=== PATIENT | male | born 1950 | race Caucasian/White ===

== ENCOUNTER 2018-10-16 17:48 | Inpatient (IN) | payer MEDICARE, MEDICAID ==
[2018-10-16] MEDS ORDERED: LORazepam 2 MG/ML SDV ONE ×3 (17:52→21:28)
[2018-10-16] MEDS ORDERED: LORazepam 2 MG/ML SDV IVPUSH ONE ×4 (17:56→23:02)
--- NOTE | 2018-10-16 18:09 | EDM.PDOC ---
ED HPI GENERAL MEDICAL PROBLEM - General Stated Complaint: SEIZURES Time Seen by Provider: 10/16/18 17:51 Source of Information: Reports: Other (2 caregivers from) History Limitations: Reports: Physical Impairment (currently seizing) - History of Present Illness INITIAL COMMENTS - FREE TEXT/NARRATIVE: According to 2 [place] counselors from [facility] - a camp for disabled persons, the patient started having seizures around 16:45. He has had variable degrees of wakefulness in between the seizures, however, at present, the patient appears to be having a generalized tonic-clonic seizure. He has not bitten his tongue or lip, and he has not lost continence of bowel or bladder. The patient has a history of complex partial seizures, and is on both Keppra and Lamictal, along with Klonopin, given for anxiety. According to the counselors, the patient has not missed any doses of his medications, nor has he been sleep deprived. No recent illnesses, to their knowledge, however, the patient just came to [place] yesterday. I spoke with the patient's family caseworker, Aviva Delaney, on the phone at 18:02, who informed me that the patient ordinarily has about 10 relatively brief seizures every 6 months. Most seizures last about 2 minutes, however, every year , when the patient goes to [place], he gets very excited, and when he is excited, his seizures last longer. She stated that the patient has been extremely excited about this current camp trip, for quite some time, therefore it does not surprise her that he is having such prolonged seizures. She does not recall when the last imaging study of his head was performed. She does not recall if one particular antiepileptic treatment - Ativan versus diazepam, etc - is preferable. Ms. Delaney and I reviewed the patient's past medical history. She believes that he has not undergone any surgeries. The patient's PCP is Dr. Bill. The patient's Neurologist is in [place], but Ms. Delaney did not recall his name. The patient's Psychiatrist is Dr. Griffith. - Related Data Allergies Allergy/AdvReac Type Severity Reaction Status Date / Time No Known Allergies Allergy Verified 10/16/18 18:08 Past Medical History Neurological History: Reports: Seizure (complex partial), Other (See Below) ( Moderate intellectual disability) Psychiatric History: Reports: Anxiety, Psychosis Social & Family History - Tobacco Use Smoking Status *Q: Never Smoker Second Hand Smoke Exposure: No - Alcohol Use Alcohol Use History: No - Recreational Drug Use Recreational Drug Use: No - Living Situation & Occupation Living situation: Reports: Single, Other ([facility] in [place], [place]) Occupation: Disabled ED ROS GENERAL - Review of Systems Review Of Systems: ROS reveals no pertinent complaints other than HPI. - Physical Exam Exam: See Below Exam Limited By: Physical Impairment (Seizures) General Appearance: WD/WN Ears: Normal External Exam Nose: Normal Inspection Throat/Mouth: Normal Inspection, Normal Lips, No Airway Compromise Head Exam: Atraumatic, Normocephalic Neck: Normal Inspection Respiratory/Chest: No Respiratory Distress, Lungs Clear, Normal Breath Sounds, No Accessory Muscle Use Cardiovascular: Normal Peripheral Pulses, Regular Rate, Rhythm, No Edema, No Gallop, No JVD, No Murmur, No Rub GI/Abdominal: Normal Bowel Sounds, Soft, No Organomegaly, No Distention, No Abnormal Bruit, No Mass (Male) Exam: Deferred Rectal (Males) Exam: Deferred Neuro Exam (Abbreviated): Other (Actively seizing) Back Exam: Normal Inspection, Full Range of Motion, NT Extremities: Normal Inspection, Normal Capillary Refill Skin Exam: Warm, Dry, Intact, Normal Color, No Rash Course - Vital Signs Last Recorded V/S: Last Vital Signs Temp 35.9 C 10/16/18 18:02 Pulse 71 10/16/18 18:02 Resp 24 H 10/16/18 18:02 BP 139/76 10/16/18 18:02 Pulse Ox 94 L 10/16/18 18:02 - Orders/Labs/Meds Labs: Laboratory Tests 10/16/18 10/16/18 Range/Units 18:24 18:24 WBC 6.73 (4.23-9.07) K/mm3 RBC 4.61 L (4.63-6.08) M/mm3 Hgb 14.1 (13.7-17.5) gm/L Hct 41.5 (40.1-51.0) % MCV 90.0 (79.0-92.2) fl MCH 30.6 (25.7-32.2) pg MCHC 34.0 (32.2-35.5) g/dl RDW Std Deviation 41.0 (35.1-43.9) fL Plt Count 267 (163-337) K/mm3 MPV 9.9 (9.4-12.3) fl Neutrophils % (Manual) 67 H (40-60) % Band Neutrophils % 0 (0-10) % Lymphocytes % (Manual) 29 (20-40) % Atypical Lymphs % 0 % Monocytes % (Manual) 1 L (2-10) % Eosinophils % (Manual) 2 (0.8-7.0) % Basophils % (Manual) 1 (0.2-1.2) Platelet Estimate Adequate Plt Morphology Comment Normal RBC Morph Comment Normal Sodium 138 (136-145) mEq/L Potassium 3.8 (3.5-5.1) mEq/L Chloride 102 (98-107) mEq/L Carbon Dioxide 25 (21-32) mEq/L Anion Gap 14.8 (5-15) BUN 15 (7-18) mg/dL Creatinine 1.2 (0.7-1.3) mg/dL Est Cr Clr Drug Dosing 58.58 mL/min Estimated GFR (MDRD) > 60 (>60) mL/min BUN/Creatinine Ratio 12.5 L (14-18) Glucose 107 (80-115) mg/dL Calcium 10.0 (8.5-10.1) mg/dL Phosphorus 4.1 (2.6-4.7) mg/dL Magnesium 2.0 (1.8-2.4) mg/dl Total Bilirubin 0.5 (0.2-1.0) mg/dL AST 18 (15-37) U/L ALT 25 (16-63) U/L Alkaline Phosphatase 94 (46-116) U/L Total Protein 8.0 (6.4-8.2) g/dl Albumin 4.2 (3.4-5.0) g/dl Globulin 3.8 gm/dL Albumin/Globulin Ratio 1.1 (1-2) Ethyl Alcohol 0.00 (0.00) gm% Meds: Medications Discontinued Medications Generic Name Dose Route Start Last Admin Trade Name Freq PRN Reason Stop Dose Admin Diazepam 15 mg 10/16/18 18:24 10/16/18 18:29 Valium IV 10/16/18 18:25 15 mg ONETIME STA Administration Diazepam Confirm 10/16/18 18:26 10/16/18 19:09 Valium Administered 10/16/18 18:27 Not Given Dose 10 mg .ROUTE .STK-MED ONE Diazepam Confirm 10/16/18 18:26 10/16/18 19:09 Valium Administered 10/16/18 18:27 Not Given Dose 10 mg .ROUTE .STK-MED ONE Lorazepam Confirm 10/16/18 17:52 10/16/18 18:16 Ativan Administered 10/16/18 17:53 Not Given Dose 2 mg .ROUTE .STK-MED ONE Lorazepam Confirm 10/16/18 18:09 10/16/18 18:15 Ativan Administered 10/16/18 18:10 Not Given Dose 2 mg .ROUTE .STK-MED ONE Lorazepam 1 mg 10/16/18 18:11 10/16/18 18:13 Ativan IVPUSH 10/16/18 18:12 1 mg ONETIME STA Administration Lorazepam 1 mg 10/16/18 17:56 10/16/18 17:56 Ativan IVPUSH 10/16/18 17:57 1 mg ONETIME ONE Administration Lorazepam 1 mg 10/16/18 18:04 10/16/18 18:04 Ativan IVPUSH 10/16/18 18:05 1 mg ONETIME ONE Administration - Re-Assessments/Exams Free Text/Narrative Re-Assessment/Exam: 10/16/18 17:59 The patient may be in status epilepticus, because while it is known that he has a seizure disorder, the frequency of his seizures is not known. An IV is being established, and the patient will receive IV lorazepam. I have ordered blood work, a urine drug screen, and, since the patient has never been here before, a CT scan of his head without contrast. Unfortunately, both Keppra and Lamictal levels are send-out tests. 10/16/18 18:24 So far, the patient has received a total of 3 mg of IV lorazepam. Initially, when I first saw him, he was having more of a generalized tonic-clonic seizure. The generalized tonic-clonic activity has ceased, however, the patient is still unresponsive, with both his eyes deviated to the left, with frequent eyebrow raising. His body is relatively flaccid. I ordered diazepam 15 mg IVP. I cannot leave the patient in status epilepticus. If I can't get control of his seizures with benzodiazepines, I may need to consider intubation and propofol. 10/16/18 18:34 Following IV diazepam, the patient now appears to be sleeping. His eyes are no longer deviated to the left. Katya BUCKNER informed me that he was earlier incontinent of urine. His oxygen saturation briefly dropped - Katya BUCKNER and I repositioned him, so that he is sitting more upright, and his oxygen saturation is now in the low 90s on room air. I am reluctant to give him supplemental oxygen, for this will mask hypoventilation. If the patient develops respiratory depression to the point that he cannot adequately oxygenate, that would mean that he is also not adequately ventilating, and intubation would need to be considered. 10/16/18 19:14 CT of the head without contrast is read by Dr. Mcneil as: 1. Asymmetric cerebellar atrophy. This can be seen with certain types of medication. 2. Sinus findings which most likely are due to chronic sinusitis. No fluid is seen within the sinuses to indicate acute sinusitis. 3. No acute intracranial abnormality is appreciated on noncontrast head CT exam. 10/16/18 19:36 The patient has been sleeping, but is able to be woken. I don't feel, however, that the patient is fit for return to [place]. I would prefer that he stay the night. Unfortunately, the camp counselors inform me that even if medically cleared, they do not want him back at [place]. Case discussed with Dr. Mcelroy at 19:30. He accepted the patient for placement into observation on the medical floor. Departure - Departure Time of Disposition: 19:38 Disposition: Refer to Observation Condition: Good Clinical Impression: Epileptic seizures - Discharge Information *PRESCRIPTION DRUG MONITORING PROGRAM REVIEWED*: Not Applicable *COPY OF PRESCRIPTION DRUG MONITORING REPORT IN PATIENT JUSTINA: Not Applicable Referrals: PCP,None [Primary Care Provider] -
[2018-10-16] MEDS ORDERED: LORazepam 2 MG/ML SDV IVPUSH STA (18:11)
[2018-10-16] MEDS ORDERED: diazePAM 5 MG/ML MDV IV STA (18:24)
[2018-10-16] MEDS ORDERED: diazePAM 5 MG/ML-2ml Syringe ONE ×2 (18:26)
--- NOTE | 2018-10-16 19:12 | CT ---
Head CT Technique: Multiple axial sections through the brain were obtained. Intravenous contrast was not utilized. Comparison: No prior intracranial imaging is present. Findings: Asymmetric atrophy is seen of the cerebellum as compared to other portions of the brain. No abnormal parenchymal densities are seen. No evidence of intracranial hemorrhage. No midline shift or mass effect is seen. Mild mucosal thickening is seen within the ethmoid and frontal sinuses. No air-fluid levels are appreciated within the paranasal sinuses. Mastoid sinuses are clear. No acute calvarial abnormality is appreciated. Impression: 1. Asymmetric cerebellar atrophy. This can be seen with certain types of medication. 2. Sinus findings which most likely are due to chronic sinusitis. No fluid is seen within the sinuses to indicate acute sinusitis. 3. No acute intracranial abnormality is appreciated on noncontrast head CT exam. Diagnostic code #2
[2018-10-16] MEDS ORDERED: diazePAM 5 MG/ML-2ml Syringe IV ONE (19:54)
[2018-10-16] MEDS ORDERED: Simvastatin 20 MG Tab PO ONE (21:45)
[2018-10-16] MEDS ORDERED: levETIRAcetam 500 MG in Sodium Chloride 0.9% 100 ML IV ONE (21:51)
--- NOTE | 2018-10-16 22:31 | PCM.HP ---
H&P History of Present Illness - General Date of Service: 10/16/18 Admit Problem/Dx: Admission Diagnosis/Problem Admission Diagnosis/Problem Seizure - History of Present Illness Initial Comments - Free Text/Narative: This 68-year-old disabled, mentally handicapped patient with known seizure disorder was brought to the emergency room from [facility] after developing a seizure around 1645. Patient is known to have an increase in seizure activity when he gets excited, but after several years of coming to [place] has never had a seizure there. Patient presented in the emergency room having a generalized tonic-clonic seizure. Patient is on Keppra, Lamictal, and Klonopin. He has not missed any doses. In the emergency room he continued to have seizures after 3 mg of Ativan, so he was given diazepam 15 mg. This did break his seizure and at that time patient was transferred to the floor. When patient arrives on the floor he continued to have fine tonic-clonic movement with head deviation to the left and left-sided eye deviation with horizontal nystagmus. Patient was given Ativan 2 mg IV which did break his current seizure. Unfortunately, patient has been in and out of seizures subsequently. Call was made to [facility] and Dr. Navjot Adame recommended loading him with Keppra 500 mg IV. After the loading dose of Keppra patient did have 1 more four- minute seizure, but currently is seizure free. patient was transferred from the [facility] floor to the ICU for closer monitoring. - Related Data Allergies/Adverse Reactions: Allergies Allergy/AdvReac Type Severity Reaction Status Date / Time No Known Allergies Allergy Verified 10/16/18 21:06 Home Medications: Home Meds Calcium Carbonate [Calcium] 500 mg PO TID 10/16/18 [History] ClonazePAM [KlonoPIN] 0.25 mg PO BEDTIME 10/16/18 [History] ClonazePAM [KlonoPIN] 0.5 mg PO DAILY 10/16/18 [History] Docusate Sodium [Colace] 100 mg PO BID 10/16/18 [History] Escitalopram [Lexapro] 10 mg PO BEDTIME 10/16/18 [History] Methylcellulose (with Sugar) [Citrucel] 1 tbsp PO DAILY 10/16/18 [History] Mirtazapine [Remeron] 30 mg PO BEDTIME 10/16/18 [History] Oxybutynin [Oxybutynin ER] 5 mg PO BEDTIME 10/16/18 [History] Ziprasidone HCl [Geodon] 60 mg PO BID 10/16/18 [History] atorvaSTATin Calcium [Lipitor] 20 mg PO BEDTIME 10/16/18 [History] lamoTRIgine [Lamictal] 300 mg PO DAILY 10/16/18 [History] lamoTRIgine [Lamictal] 400 mg PO BEDTIME 10/16/18 [History] levETIRAcetam [Keppra] 1,500 mg PO BID 10/16/18 [History] Past Medical History HEENT History: Reports: Impaired Vision Gastrointestinal History: Reports: Chronic Constipation Neurological History: Reports: Seizure, Other (See Below) Psychiatric History: Reports: Anxiety, Psychosis Other Psychiatric History: intellictual disorder- moderate Social & Family History - Family History Family Medical History: Unobtainable - Tobacco Use Smoking Status *Q: Current Status Unknown Second Hand Smoke Exposure: No - Caffeine Use Caffeine Use: Reports: None - Recreational Drug Use Recreational Drug Use: No - Living Situation & Occupation Living situation: Reports: Single, Other ([employer] [facility] in [place], [place]) Occupation: Disabled H&P Review of Systems - Review of Systems: Review Of Systems: Unable To Obtain Exam - Exam Exam: See Below - Vital Signs Vital Signs: Last Vital Signs Temp 96.7 F 10/16/18 18:02 Pulse 71 10/16/18 18:02 Resp 24 H 10/16/18 18:02 BP 139/76 10/16/18 18:02 Pulse Ox 94 L 10/16/18 18:02 Weight: 190 lb 14.4 oz - Exam General: Sedated, Other (between seizures does use one-word answers.) HEENT: Conjunctiva Clear, Mucosa Moist & [place], Posterior Pharynx Clear Neck: Supple, Trachea Midline Lungs: Clear to Auscultation, Normal Respiratory Effort Cardiovascular: Regular Rate, Regular Rhythm GI/Abdominal Exam: Normal Bowel Sounds, Soft, Non-Tender, No Distention Extremities: Normal Inspection, No Pedal Edema Neuro Extensive - Motor, Sensory, Reflexes: Other (fine, tonic-clonic seizure activity generalize. Eye and head deviation to the left with horizontal nystagmus. between seizures does follow directions with squeezing hands right greater than left.) - Patient Data Lab Results Last 24 hrs: Laboratory Results - last 24 hr 10/16/18 10/16/18 Range/Units 18:24 18:24 WBC 6.73 (4.23-9.07) K/mm3 RBC 4.61 L (4.63-6.08) M/mm3 Hgb 14.1 (13.7-17.5) gm/L Hct 41.5 (40.1-51.0) % MCV 90.0 (79.0-92.2) fl MCH 30.6 (25.7-32.2) pg MCHC 34.0 (32.2-35.5) g/dl RDW Std Deviation 41.0 (35.1-43.9) fL Plt Count 267 (163-337) K/mm3 MPV 9.9 (9.4-12.3) fl Neutrophils % (Manual) 67 H (40-60) % Band Neutrophils % 0 (0-10) % Lymphocytes % (Manual) 29 (20-40) % Atypical Lymphs % 0 % Monocytes % (Manual) 1 L (2-10) % Eosinophils % (Manual) 2 (0.8-7.0) % Basophils % (Manual) 1 (0.2-1.2) Platelet Estimate Adequate Plt Morphology Comment Normal RBC Morph Comment Normal Sodium 138 (136-145) mEq/L Potassium 3.8 (3.5-5.1) mEq/L Chloride 102 (98-107) mEq/L Carbon Dioxide 25 (21-32) mEq/L Anion Gap 14.8 (5-15) BUN 15 (7-18) mg/dL Creatinine 1.2 (0.7-1.3) mg/dL Est Cr Clr Drug Dosing 58.58 mL/min Estimated GFR (MDRD) > 60 (>60) mL/min BUN/Creatinine Ratio 12.5 L (14-18) Glucose 107 (80-115) mg/dL Calcium 10.0 (8.5-10.1) mg/dL Phosphorus 4.1 (2.6-4.7) mg/dL Magnesium 2.0 (1.8-2.4) mg/dl Total Bilirubin 0.5 (0.2-1.0) mg/dL AST 18 (15-37) U/L ALT 25 (16-63) U/L Alkaline Phosphatase 94 (46-116) U/L Total Protein 8.0 (6.4-8.2) g/dl Albumin 4.2 (3.4-5.0) g/dl Globulin 3.8 gm/dL Albumin/Globulin Ratio 1.1 (1-2) Ethyl Alcohol 0.00 (0.00) gm% Result Diagrams: 10/16/18 18:24 10/16/18 18:24 Imaging Impressions Last 24 hrs: CT of the brain showed asymmetric cerebellar atrophy but no acute findings and no bleeds. - Problem List (1) Status epilepticus SNOMED Code(s): 603355089 ICD Code: G40.901 - EPILEPSY, UNSP, NOT INTRACTABLE, WITH STATUS EPILEPTICUS Status: Acute Current Visit: Yes (2) Mentally disabled SNOMED Code(s): 775500924 ICD Code: F79 - UNSPECIFIED INTELLECTUAL DISABILITIES Status: Acute Current Visit: Yes Problem List Initiated/Reviewed/Updated: Yes Orders Last 24hrs: Active Orders 24 hr Category Date Time Status Patient Status [ADT] Routine ADT 10/16/18 22:25 Ordered Antiembolic Devices [RC] PER UNIT ROUTINE Care 10/16/18 22:29 Ordered Cardiac Monitoring [RC] CONTINUOUS Care 10/16/18 22:28 Ordered Oxygen Therapy [RC] PRN Care 10/16/18 22:27 Ordered Pulse Oximetry [RC] CONTINUOUS Care 10/16/18 22:28 Ordered Up With Assistance [RC] ASDIRECTED Care 10/16/18 22:27 Ordered VTE/DVT Education [RC] PER UNIT ROUTINE Care 10/16/18 22:27 Ordered Vital Signs [RC] Q4H Care 10/16/18 22:27 Ordered Nothing per Oral Now Diet [DIET] Diet 10/16/18 Breakfast Ordered CBC WITH AUTO DIFF [HEME] AM Lab 10/17/18 05:11 Ordered COMPREHENSIVE METABOLIC PN,CMP [CHEM] AM Lab 10/17/18 05:11 Ordered MAGNESIUM [CHEM] AM Lab 10/17/18 05:11 Ordered ClonazePAM [KlonoPIN] Med 10/17/18 21:00 Ordered 0.25 mg PO BEDTIME ClonazePAM [KlonoPIN] Med 10/17/18 09:00 Ordered 0.5 mg PO DAILY Docusate Sodium [Colace] Med 10/17/18 09:00 Ordered 100 mg PO BID Escitalopram Med 10/17/18 21:00 Ordered 10 mg PO BEDTIME Sodium Chloride 0.9% [Normal Saline] 1,000 ml Med 10/16/18 22:30 Ordered IV ASDIRECTED Ziprasidone HCl Med 10/17/18 09:00 Ordered 60 mg PO BID atorvaSTATin Calcium Med 10/17/18 21:00 Ordered 20 mg PO BEDTIME lamoTRIgine [Lamictal] Med 10/17/18 09:00 Ordered 300 mg PO DAILY lamoTRIgine [Lamictal] Med 10/17/18 21:00 Ordered 400 mg PO BEDTIME levETIRAcetam [Keppra] Med 10/16/18 21:45 Ordered 1,500 mg PO BID Antiembolic Hose [OM.PC] Per Unit Routine Oth 10/16/18 22:28 Ordered Resuscitation Status Routine Resus Stat 10/16/18 21:35 Ordered Medication Orders Citalopram Hydrobromide (Celexa) 20 mg PO BEDTIME ROSALINA Clonazepam (Klonopin) 0.25 mg PO BEDTIME ROSALINA Clonazepam (Klonopin) 0.5 mg PO DAILY ROSALINA Docusate Sodium (Colace) 100 mg PO BID ROSALINA Sodium Chloride (Normal Saline) 1,000 mls @ 100 mls/hr IV ASDIRECTED ROSALINA Lamotrigine (Lamotrigine) 300 mg PO DAILY ROSALINA Lamotrigine (Lamotrigine) 400 mg PO BEDTIME ROSALINA Levetiracetam (Keppra) 1,500 mg PO BID ROSALINA Simvastatin (Zocor) 20 mg PO BEDTIME ROSALINA Ziprasidone (Geodon) 60 mg PO BID ROSALINA Assessment/Plan Comment:: status epilepticus in a patient with known seizure disorder * CMP, CBC, alcohol level are all normal * CT of the brain shows no acute findings * Patient has had a total of 5 mg of Ativan IV and 15 mg of diazepam * Keppra 500 mg IV loading dose patient continued to seize after the above treatment. Patient was given another Ativan 2 mg IV and then Dilantin 1700 mg IV bolus. Patient has been seizure free since the Dilantin bolus. Monitor overnight and recheck labs in the morning. Restart home meds when awake and alert.
[2018-10-16] MEDS: Sodium Chloride 0.9% 1,000 ML IV SCH (22:55)
[2018-10-16] MEDS ORDERED: Phenytoin 250 MG/5 ML SDV IVPUSH ONE (22:57)
[2018-10-16] MEDS: levETIRAcetam 500 MG Tab PO SCH (23:34)
[2018-10-16] MEDS: Citalopram 20 MG Tab PO SCH (23:34)
[2018-10-16] MEDS: Ziprasidone HCl 20 MG Cap PO SCH (23:34)
[2018-10-16] MEDS: lamoTRIgine 100 MG Tab PO SCH (23:35)
[2018-10-17] MEDS: Ziprasidone HCl 20 MG Cap PO SCH ×2 (07:59→22:08)
[2018-10-17] MEDS: Docusate Sodium 100 MG Cap PO SCH ×2 (07:59→22:08)
[2018-10-17] MEDS: levETIRAcetam 500 MG Tab PO SCH ×2 (08:00→22:08)
[2018-10-17] MEDS ORDERED: ClonazePAM 0.5 MG Tab PO SCH ×2 (09:00→21:00)
[2018-10-17] MEDS ORDERED: lamoTRIgine 100 MG Tab PO SCH (09:00)
[2018-10-17] MEDS: Sodium Chloride 0.9% 1,000 ML IV SCH ×2 (09:02→19:57)
[2018-10-17] MEDS ORDERED: LORazepam 2 MG/ML SDV IVPUSH STA (10:31)
--- NOTE | 2018-10-17 10:40 | CR ---
Chest: Portable view of the chest was obtained. Comparison: No previous chest x-ray. Heart size is normal. Tortuous thoracic aorta is seen. Lungs are clear with no acute parenchymal change. Old trauma to the distal right clavicle is noted. Pressure: 1. Nothing acute is seen. Incidental findings. Diagnostic code #2
[2018-10-17] MEDS ORDERED: LORazepam 2 MG/ML SDV IVPUSH ONE ×2 (10:43→19:48)
[2018-10-17] MEDS ORDERED: LORazepam 1 MG Tab PO PRN (12:56)
--- NOTE | 2018-10-17 13:02 | PCM.PN ---
- General Info Date of Service: 10/17/18 Admission Dx/Problem (Free Text): Admission Diagnosis/Problem Admission Diagnosis/Problem Seizure Subjective Update: Ezekiel continued to have seizure-like episodes off and on throughout the night. Symptoms seem to worsen in the home supervisor to every 20 minutes. I spoke with his tub washer Dr. Adame who recommended a long EEG study of at least [address] Adame was able to read the EEG and stated that there was no seizure activity on the study. It is felt that his behaviors are not seizure related. Patient was given Ativan for the EEG study and currently is resting comfortably. - Review of Systems General: Reports: Other (Unable to obtain) - Patient Data Vitals - Most Recent: Last Vital Signs Temp 97.6 F 10/17/18 12:00 Pulse 72 10/17/18 12:00 Resp 19 10/17/18 12:00 BP 122/80 10/17/18 12:00 Pulse Ox 94 L 10/17/18 12:00 Weight - Most Recent: 193 lb I&O - Last 24 Hours: Intake & Output 10/16/18 10/17/18 10/17/18 22:59 06:59 14:59 Intake Total 585 120 Output Total 600 Balance -15 120 Lab Results Last 24 Hours: Laboratory Results - last 24 hr 10/16/18 10/16/18 10/16/18 Range/Units 18:24 18:24 23:00 WBC 6.73 (4.23-9.07) K/mm3 RBC 4.61 L (4.63-6.08) M/mm3 Hgb 14.1 (13.7-17.5) gm/L Hct 41.5 (40.1-51.0) % MCV 90.0 (79.0-92.2) fl MCH 30.6 (25.7-32.2) pg MCHC 34.0 (32.2-35.5) g/dl RDW Std Deviation 41.0 (35.1-43.9) fL Plt Count 267 (163-337) K/mm3 MPV 9.9 (9.4-12.3) fl Neut % (Auto) (34.0-67.9) % Lymph % (Auto) (21.8-53.1) % [place] % (Auto) (5.3-12.2) % Eos % (Auto) (0.8-7.0) Baso % (Auto) (0.1-1.2) % Neut # (Auto) (1.78-5.38) K/mm3 Lymph # (Auto) (1.32-3.57) K/mm3 [place] # (Auto) (0.30-0.82) K/mm3 Eos # (Auto) (0.04-0.54) K/mm3 Baso # (Auto) (0.01-0.08) K/mm3 Neutrophils % (Manual) 67 H (40-60) % Band Neutrophils % 0 (0-10) % Lymphocytes % (Manual) 29 (20-40) % Atypical Lymphs % 0 % Monocytes % (Manual) 1 L (2-10) % Eosinophils % (Manual) 2 (0.8-7.0) % Basophils % (Manual) 1 (0.2-1.2) Platelet Estimate Adequate Plt Morphology Comment Normal RBC Morph Comment Normal Sodium 138 (136-145) mEq/L Potassium 3.8 (3.5-5.1) mEq/L Chloride 102 (98-107) mEq/L Carbon Dioxide 25 (21-32) mEq/L Anion Gap 14.8 (5-15) BUN 15 (7-18) mg/dL Creatinine 1.2 (0.7-1.3) mg/dL Est Cr Clr Drug Dosing 58.58 mL/min Estimated GFR (MDRD) > 60 (>60) mL/min BUN/Creatinine Ratio 12.5 L (14-18) Glucose 107 (80-115) mg/dL Lactic Acid (0.4-2.0) mmol/L Calcium 10.0 (8.5-10.1) mg/dL Phosphorus 4.1 (2.6-4.7) mg/dL Magnesium 2.0 (1.8-2.4) mg/dl Total Bilirubin 0.5 (0.2-1.0) mg/dL AST 18 (15-37) U/L ALT 25 (16-63) U/L Alkaline Phosphatase 94 (46-116) U/L Total Protein 8.0 (6.4-8.2) g/dl Albumin 4.2 (3.4-5.0) g/dl Globulin 3.8 gm/dL Albumin/Globulin Ratio 1.1 (1-2) Ethyl Alcohol 0.00 (0.00) gm% MRSA (PCR) Negative 10/17/18 10/17/18 10/17/18 Range/Units 05:25 05:25 05:25 WBC 8.34 (4.23-9.07) K/mm3 RBC 4.45 L (4.63-6.08) M/mm3 Hgb 13.5 L (13.7-17.5) gm/L Hct 39.8 L (40.1-51.0) % MCV 89.4 (79.0-92.2) fl MCH 30.3 (25.7-32.2) pg MCHC 33.9 (32.2-35.5) g/dl RDW Std Deviation 40.0 (35.1-43.9) fL Plt Count 226 (163-337) K/mm3 MPV 9.8 (9.4-12.3) fl Neut % (Auto) 63.0 (34.0-67.9) % Lymph % (Auto) 21.8 (21.8-53.1) % [place] % (Auto) 10.9 (5.3-12.2) % Eos % (Auto) 3.6 (0.8-7.0) Baso % (Auto) 0.6 (0.1-1.2) % Neut # (Auto) 5.25 (1.78-5.38) K/mm3 Lymph # (Auto) 1.82 (1.32-3.57) K/mm3 [place] # (Auto) 0.91 H (0.30-0.82) K/mm3 Eos # (Auto) 0.30 (0.04-0.54) K/mm3 Baso # (Auto) 0.05 (0.01-0.08) K/mm3 Neutrophils % (Manual) (40-60) % Band Neutrophils % (0-10) % Lymphocytes % (Manual) (20-40) % Atypical Lymphs % % Monocytes % (Manual) (2-10) % Eosinophils % (Manual) (0.8-7.0) % Basophils % (Manual) (0.2-1.2) Platelet Estimate Plt Morphology Comment RBC Morph Comment Sodium 138 (136-145) mEq/L Potassium 3.9 (3.5-5.1) mEq/L Chloride 103 (98-107) mEq/L Carbon Dioxide 24 (21-32) mEq/L Anion Gap 14.9 (5-15) BUN 13 (7-18) mg/dL Creatinine 1.0 (0.7-1.3) mg/dL Est Cr Clr Drug Dosing 72.66 mL/min Estimated GFR (MDRD) > 60 (>60) mL/min BUN/Creatinine Ratio 13.0 L (14-18) Glucose 93 (80-115) mg/dL Lactic Acid 1.1 (0.4-2.0) mmol/L Calcium 9.0 (8.5-10.1) mg/dL Phosphorus (2.6-4.7) mg/dL Magnesium 1.8 (1.8-2.4) mg/dl Total Bilirubin 0.8 (0.2-1.0) mg/dL AST 19 (15-37) U/L ALT 23 (16-63) U/L Alkaline Phosphatase 85 (46-116) U/L Total Protein 7.3 (6.4-8.2) g/dl Albumin 3.7 (3.4-5.0) g/dl Globulin 3.6 gm/dL Albumin/Globulin Ratio 1.0 (1-2) Ethyl Alcohol (0.00) gm% MRSA (PCR) Med Orders - Current: Current Medications Citalopram Hydrobromide (Celexa) 20 mg PO BEDTIME [facility] Last Admin: 10/16/18 23:34 Dose: Not Given Clonazepam (Klonopin) 0.25 mg PO BEDTIME [facility] Clonazepam (Klonopin) 0.5 mg PO DAILY [facility] Last Admin: 10/17/18 08:00 Dose: 0.5 mg Docusate Sodium (Colace) 100 mg PO BID [facility] Last Admin: 10/17/18 07:59 Dose: 100 mg Sodium Chloride (Normal Saline) 1,000 mls @ 100 mls/hr IV ASDIRECTED [facility] Last Admin: 10/17/18 09:02 Dose: 100 mls/hr Lamotrigine (Lamotrigine) 300 mg PO DAILY [facility] Last Admin: 10/17/18 08:00 Dose: 300 mg Lamotrigine (Lamotrigine) 400 mg PO BEDTIME [facility] Last Admin: 10/16/18 23:35 Dose: Not Given Levetiracetam (Keppra) 1,500 mg PO BID [facility] Last Admin: 10/17/18 08:00 Dose: 1,500 mg Simvastatin (Zocor) 20 mg PO BEDTIME [facility] Ziprasidone (Geodon) 60 mg PO BID [facility] Last Admin: 10/17/18 07:59 Dose: 60 mg Discontinued Medications Diazepam (Valium) 15 mg IV ONETIME STA Stop: 10/16/18 18:25 Last Admin: 10/16/18 18:29 Dose: 15 mg Diazepam (Valium) Confirm Administered Dose 10 mg .ROUTE .STK-MED ONE Stop: 10/16/18 18:27 Last Admin: 10/16/18 19:09 Dose: Not Given Diazepam (Valium) Confirm Administered Dose 10 mg .ROUTE .STK-MED ONE Stop: 10/16/18 18:27 Last Admin: 10/16/18 19:09 Dose: Not Given Diazepam (Valium) 5 mg IV ONETIME ONE Stop: 10/16/18 19:55 Last Admin: 10/16/18 20:23 Dose: 5 mg Levetiracetam 500 mg/ Sodium (Chloride) 105 mls @ 400 mls/hr IV ONETIME ONE Stop: 10/16/18 22:05 Last Admin: 10/16/18 22:09 Dose: 400 mls/hr Lorazepam (Ativan) Confirm Administered Dose 2 mg .ROUTE .STK-MED ONE Stop: 10/16/18 17:53 Last Admin: 10/16/18 18:16 Dose: Not Given Lorazepam (Ativan) Confirm Administered Dose 2 mg .ROUTE .STK-MED ONE Stop: 10/16/18 18:10 Last Admin: 10/16/18 18:15 Dose: Not Given Lorazepam (Ativan) 1 mg IVPUSH ONETIME STA Stop: 10/16/18 18:12 Last Admin: 10/16/18 18:13 Dose: 1 mg Lorazepam (Ativan) 1 mg IVPUSH ONETIME ONE Stop: 10/16/18 17:57 Last Admin: 10/16/18 17:56 Dose: 1 mg Lorazepam (Ativan) 1 mg IVPUSH ONETIME ONE Stop: 10/16/18 18:05 Last Admin: 10/16/18 18:04 Dose: 1 mg Lorazepam (Ativan) 2 mg IVPUSH ONETIME ONE Stop: 10/16/18 21:28 Last Admin: 10/16/18 21:29 Dose: 2 mg Lorazepam (Ativan) Confirm Administered Dose 2 mg .ROUTE .STK-MED ONE Stop: 10/16/18 21:29 Last Admin: 10/16/18 21:35 Dose: Not Given Lorazepam (Ativan) 2 mg IVPUSH ONETIME ONE Stop: 10/16/18 23:03 Last Admin: 10/16/18 23:07 Dose: 2 mg Lorazepam (Ativan) 1 mg IVPUSH ONETIME STA Stop: 10/17/18 10:32 Last Admin: 10/17/18 10:39 Dose: 1 mg Lorazepam (Ativan) 1 mg IVPUSH ONETIME ONE Stop: 10/17/18 10:44 Last Admin: 10/17/18 11:00 Dose: 1 mg Phenytoin Sodium (Phenytoin) 1,700 mg IVPUSH ONETIME ONE Stop: 10/16/18 22:58 Last Admin: 10/16/18 23:13 Dose: 1,700 mg Simvastatin (Zocor) 20 mg PO ONETIME ONE Stop: 10/16/18 21:46 Last Admin: 10/16/18 23:35 Dose: Not Given - Exam General: Sedated HEENT: Pupils Equal, Pupils Reactive Neck: Supple Lungs: Clear to Auscultation, Normal Respiratory Effort Cardiovascular: Regular Rate, Regular Rhythm GI/Abdominal Exam: Normal Bowel Sounds, Soft, Non-Tender, No Distention Extremities: Normal Inspection, Normal Range of Motion, No Pedal Edema Skin: Warm, Dry, Intact Neurological: Other (Earlier continued left-sided deviation of eyes and head with nystagmus. Also coarse jerking of the upper extremities and legs.) - Problem List & Annotations (1) Status epilepticus SNOMED Code(s): 131032686 Code(s): G40.901 - EPILEPSY, UNSP, NOT INTRACTABLE, WITH STATUS EPILEPTICUS Status: Acute Current Visit: Yes (2) Mentally disabled SNOMED Code(s): 859936065 Code(s): F79 - UNSPECIFIED INTELLECTUAL DISABILITIES Status: Acute Current Visit: Yes - Problem List Review Problem List Initiated/Reviewed/Updated: Yes - My Orders Last 24 Hours: My Active Orders 10/16/18 21:00 Citalopram [Celexa] 20 mg PO BEDTIME 10/16/18 21:35 Resuscitation Status Routine 10/16/18 21:45 Ziprasidone HCl [Geodon] 60 mg PO BID lamoTRIgine 400 mg PO BEDTIME levETIRAcetam [Keppra] 1,500 mg PO BID 10/16/18 22:25 Patient Status [ADT] Routine 10/16/18 22:27 VTE/DVT Education [RC] Vital Signs [RC] Q4HR 10/16/18 22:28 Cardiac Monitoring [RC] CONTINUOUS Pulse Oximetry [RC] CONTINUOUS Antiembolic Hose [OM.PC] Per Unit Routine 10/16/18 22:29 Antiembolic Devices [RC] 10/16/18 22:30 Sodium Chloride 0.9% [Normal Saline] 1,000 ml IV ASDIRECTED 10/16/18 23:43 Supplemental O2 [Oxygen Therapy] [RC] ASDIRECTED 10/17/18 05:24 Bladder Scan [RC] ASDIRECTED 10/17/18 05:26 Urinary Catheter Assessment [RC] ASDIRECTED 10/17/18 09:00 ClonazePAM [KlonoPIN] 0.5 mg PO DAILY Docusate Sodium [Colace] 100 mg PO BID lamoTRIgine 300 mg PO DAILY 10/17/18 12:56 LORazepam [Ativan] 1 mg PO Q2H PRN 10/17/18 21:00 ClonazePAM [KlonoPIN] 0.25 mg PO BEDTIME Simvastatin [Zocor] 20 mg PO BEDTIME 10/17/18 Breakfast Mechanical Soft Diet [DIET] - Assessment Assessment:: Status epilepticus resolved Seizure disorder with possible overlying pseudoseizures * Start Ativan 1 mg every 2 hours when necessary for anxiety. Anticipate only using that over the next 12-16 hours. * Patient restarted oral medications * Plan to discharge tomorrow back to his shelter. * Discussed his care with his caregivers at the residential home. - Plan Plan:: status epilepticus in a patient with known seizure disorder * CMP, CBC, alcohol level are all normal * CT of the brain shows no acute findings * Patient has had a total of 5 mg of Ativan IV and 15 mg of diazepam * Keppra 500 mg IV loading dose patient continued to seize after the above treatment. Patient was given another Ativan 2 mg IV and then Dilantin 1700 mg IV bolus. Patient has been seizure free since the Dilantin bolus. Monitor overnight and recheck labs in the morning. Restart home meds when awake and alert.
[2018-10-17] MEDS ORDERED: LORazepam 2 MG/ML SDV ONE (19:51)
[2018-10-17] MEDS ORDERED: diazePAM 5 MG/ML-2ml Syringe IV STA (20:09)
--- NOTE | 2018-10-17 20:37 | PCM.DCSUM1 ---
Discharge Summary - Hospital Course HPI Initial Comments: This 68-year-old disabled, mentally handicapped patient with known seizure disorder was brought to the emergency room from [employer] after developing a seizure around 1645. Patient is known to have an increase in seizure activity when he gets excited, but after [place] of [place] has never had a seizure there. Patient presented in the emergency room having a generalized tonic-clonic seizure. Patient is on Keppra, Lamictal, and Klonopin. He has not missed any doses. In the emergency room he continued to have seizures after 3 mg of Ativan, so he was given diazepam 15 mg. This did break his seizure and at that time patient was transferred to the floor. When patient arrives on the floor he continued to have fine tonic-clonic movement with head deviation to the left and left-sided eye deviation with horizontal nystagmus. Patient was given Ativan 2 mg IV which did break his current seizure. Unfortunately, patient has been in and out of seizures subsequently. Call was made to [facility] and Dr. Navjot Adame recommended loading him with Keppra 500 mg IV. After the loading dose of Keppra patient did have 1 more four- minute seizure, but currently is seizure free. patient was transferred from the [facility] floor to the ICU for closer monitoring. Brief History: Over today patient had several episodes of left eye deviation and head deviation. Patient had an EEG that did not show any epileptiform activity. This evening little after 1900 patient did develop tonic-clonic activity and I was called by nursing. Patient was given 2 mg of Ativan IV and this arrested the seizure. Nursing reports that the total time of seizure was 77 minutes. Diagnosis: Stroke: No - Discharge Data Discharge Date: 10/17/18 Discharge Disposition: DC/Tfer to Acute Hospital 02 Condition: Poor - Discharge Diagnosis/Problem(s) (1) Status epilepticus SNOMED Code(s): 841499342 ICD Code: G40.901 - EPILEPSY, UNSP, NOT INTRACTABLE, WITH STATUS EPILEPTICUS Status: Acute Current Visit: Yes (2) Mentally disabled SNOMED Code(s): 268623610 ICD Code: F79 - UNSPECIFIED INTELLECTUAL DISABILITIES Status: Acute Current Visit: Yes - Discharge Plan *PRESCRIPTION DRUG MONITORING PROGRAM REVIEWED*: Not Applicable *COPY OF PRESCRIPTION DRUG MONITORING REPORT IN PATIENT JUSTINA: Not Applicable Home Medications: Home Meds ClonazePAM [KlonoPIN] 0.25 mg PO BEDTIME 10/16/18 [History] ClonazePAM [KlonoPIN] 0.5 mg PO DAILY 10/16/18 [History] Docusate Sodium [Colace] 100 mg PO BID 10/16/18 [History] Escitalopram [Lexapro] 10 mg PO BEDTIME 10/16/18 [History] Ziprasidone HCl [Geodon] 60 mg PO BID 10/16/18 [History] atorvaSTATin Calcium [Lipitor] 20 mg PO BEDTIME 10/16/18 [History] lamoTRIgine [Lamictal] 300 mg PO DAILY 10/16/18 [History] lamoTRIgine [Lamictal] 400 mg PO BEDTIME 10/16/18 [History] levETIRAcetam [Keppra] 1,500 mg PO BID 10/16/18 [History] Oxygen Therapy Mode: Nasal Cannula Oxygen Flow Rate (L/min): 2 Forms: ED Department Discharge Referrals: PCP,None [Primary Care Provider] - - Discharge Summary/Plan Comment DC Time >30 min.: Yes Discharge Summary/Plan Comment: Patient will be transferred to [facility] in [place] for specialized care. Dr. Adame, his neurologist has been informed and Dr. Morris, body shop manager, had accepted the patient for transfer to the ICU. Patient will be sent by [facility]. - Patient Data Vitals - Most Recent: Last Vital Signs Temp 97.6 F 10/17/18 20:00 Pulse 74 10/17/18 16:00 Resp 25 H 10/17/18 20:00 BP 156/90 H 10/17/18 20:00 Pulse Ox 96 10/17/18 20:00 Weight - Most Recent: 193 lb I&O - Last 24 hours: Intake & Output 10/17/18 10/17/18 10/17/18 06:59 14:59 22:59 Intake Total 223 864 4679 Output Total 600 Balance -15 440 1566 Lab Results - Last 24 hrs: Laboratory Results - last 24 hr 10/16/18 10/17/18 10/17/18 Range/Units 23:00 05:25 05:25 WBC 8.34 (4.23-9.07) K/mm3 RBC 4.45 L (4.63-6.08) M/mm3 Hgb 13.5 L (13.7-17.5) gm/L Hct 39.8 L (40.1-51.0) % MCV 89.4 (79.0-92.2) fl MCH 30.3 (25.7-32.2) pg MCHC 33.9 (32.2-35.5) g/dl RDW Std Deviation 40.0 (35.1-43.9) fL Plt Count 226 (163-337) K/mm3 MPV 9.8 (9.4-12.3) fl Neut % (Auto) 63.0 (34.0-67.9) % Lymph % (Auto) 21.8 (21.8-53.1) % [place] % (Auto) 10.9 (5.3-12.2) % Eos % (Auto) 3.6 (0.8-7.0) Baso % (Auto) 0.6 (0.1-1.2) % Neut # (Auto) 5.25 (1.78-5.38) K/mm3 Lymph # (Auto) 1.82 (1.32-3.57) K/mm3 [place] # (Auto) 0.91 H (0.30-0.82) K/mm3 Eos # (Auto) 0.30 (0.04-0.54) K/mm3 Baso # (Auto) 0.05 (0.01-0.08) K/mm3 Sodium 138 (136-145) mEq/L Potassium 3.9 (3.5-5.1) mEq/L Chloride 103 (98-107) mEq/L Carbon Dioxide 24 (21-32) mEq/L Anion Gap 14.9 (5-15) BUN 13 (7-18) mg/dL Creatinine 1.0 (0.7-1.3) mg/dL Est Cr Clr Drug Dosing 72.66 mL/min Estimated GFR (MDRD) > 60 (>60) mL/min BUN/Creatinine Ratio 13.0 L (14-18) Glucose 93 (80-115) mg/dL Lactic Acid (0.4-2.0) mmol/L Calcium 9.0 (8.5-10.1) mg/dL Magnesium 1.8 (1.8-2.4) mg/dl Total Bilirubin 0.8 (0.2-1.0) mg/dL AST 19 (15-37) U/L ALT 23 (16-63) U/L Alkaline Phosphatase 85 (46-116) U/L Total Protein 7.3 (6.4-8.2) g/dl Albumin 3.7 (3.4-5.0) g/dl Globulin 3.6 gm/dL Albumin/Globulin Ratio 1.0 (1-2) MRSA (PCR) Negative 10/17/18 Range/Units 05:25 WBC (4.23-9.07) K/mm3 RBC (4.63-6.08) M/mm3 Hgb (13.7-17.5) gm/L Hct (40.1-51.0) % MCV (79.0-92.2) fl MCH (25.7-32.2) pg MCHC (32.2-35.5) g/dl RDW Std Deviation (35.1-43.9) fL Plt Count (163-337) K/mm3 MPV (9.4-12.3) fl Neut % (Auto) (34.0-67.9) % Lymph % (Auto) (21.8-53.1) % [place] % (Auto) (5.3-12.2) % Eos % (Auto) (0.8-7.0) Baso % (Auto) (0.1-1.2) % Neut # (Auto) (1.78-5.38) K/mm3 Lymph # (Auto) (1.32-3.57) K/mm3 [place] # (Auto) (0.30-0.82) K/mm3 Eos # (Auto) (0.04-0.54) K/mm3 Baso # (Auto) (0.01-0.08) K/mm3 Sodium (136-145) mEq/L Potassium (3.5-5.1) mEq/L Chloride (98-107) mEq/L Carbon Dioxide (21-32) mEq/L Anion Gap (5-15) BUN (7-18) mg/dL Creatinine (0.7-1.3) mg/dL Est Cr Clr Drug Dosing mL/min Estimated GFR (MDRD) (>60) mL/min BUN/Creatinine Ratio (14-18) Glucose (80-115) mg/dL Lactic Acid 1.1 (0.4-2.0) mmol/L Calcium (8.5-10.1) mg/dL Magnesium (1.8-2.4) mg/dl Total Bilirubin (0.2-1.0) mg/dL AST (15-37) U/L ALT (16-63) U/L Alkaline Phosphatase (46-116) U/L Total Protein (6.4-8.2) g/dl Albumin (3.4-5.0) g/dl Globulin gm/dL Albumin/Globulin Ratio (1-2) MRSA (PCR) Med Orders - Current: Current Medications Citalopram Hydrobromide (Celexa) 20 mg PO BEDTIME [facility] Last Admin: 10/16/18 23:34 Dose: Not Given Clonazepam (Klonopin) 0.25 mg PO BEDTIME [facility] Clonazepam (Klonopin) 0.5 mg PO DAILY [facility] Last Admin: 10/17/18 08:00 Dose: 0.5 mg Docusate Sodium (Colace) 100 mg PO BID [facility] Last Admin: 10/17/18 07:59 Dose: 100 mg Sodium Chloride (Normal Saline) 1,000 mls @ 100 mls/hr IV ASDIRECTED [facility] Last Admin: 10/17/18 19:57 Dose: 100 mls/hr Lamotrigine (Lamotrigine) 300 mg PO DAILY [facility] Last Admin: 10/17/18 08:00 Dose: 300 mg Lamotrigine (Lamotrigine) 400 mg PO BEDTIME [facility] Last Admin: 10/16/18 23:35 Dose: Not Given Levetiracetam (Keppra) 1,500 mg PO BID [facility] Last Admin: 10/17/18 08:00 Dose: 1,500 mg Lorazepam (Ativan) 1 mg PO Q2H PRN PRN Reason: Anxiety Simvastatin (Zocor) 20 mg PO BEDTIME [facility] Ziprasidone (Geodon) 60 mg PO BID [facility] Last Admin: 10/17/18 07:59 Dose: 60 mg Discontinued Medications Diazepam (Valium) 15 mg IV ONETIME STA Stop: 10/16/18 18:25 Last Admin: 10/16/18 18:29 Dose: 15 mg Diazepam (Valium) Confirm Administered Dose 10 mg .ROUTE .STK-MED ONE Stop: 10/16/18 18:27 Last Admin: 10/16/18 19:09 Dose: Not Given Diazepam (Valium) Confirm Administered Dose 10 mg .ROUTE .STK-MED ONE Stop: 10/16/18 18:27 Last Admin: 10/16/18 19:09 Dose: Not Given Diazepam (Valium) 5 mg IV ONETIME ONE Stop: 10/16/18 19:55 Last Admin: 10/16/18 20:23 Dose: 5 mg Diazepam (Valium) 15 mg IV ONETIME STA Stop: 10/17/18 20:10 Levetiracetam 500 mg/ Sodium (Chloride) 105 mls @ 400 mls/hr IV ONETIME ONE Stop: 10/16/18 22:05 Last Admin: 10/16/18 22:09 Dose: 400 mls/hr Lorazepam (Ativan) Confirm Administered Dose 2 mg .ROUTE .STK-MED ONE Stop: 10/16/18 17:53 Last Admin: 10/16/18 18:16 Dose: Not Given Lorazepam (Ativan) Confirm Administered Dose 2 mg .ROUTE .STK-MED ONE Stop: 10/16/18 18:10 Last Admin: 10/16/18 18:15 Dose: Not Given Lorazepam (Ativan) 1 mg IVPUSH ONETIME STA Stop: 10/16/18 18:12 Last Admin: 10/16/18 18:13 Dose: 1 mg Lorazepam (Ativan) 1 mg IVPUSH ONETIME ONE Stop: 10/16/18 17:57 Last Admin: 10/16/18 17:56 Dose: 1 mg Lorazepam (Ativan) 1 mg IVPUSH ONETIME ONE Stop: 10/16/18 18:05 Last Admin: 10/16/18 18:04 Dose: 1 mg Lorazepam (Ativan) 2 mg IVPUSH ONETIME ONE Stop: 10/16/18 21:28 Last Admin: 10/16/18 21:29 Dose: 2 mg Lorazepam (Ativan) Confirm Administered Dose 2 mg .ROUTE .STK-MED ONE Stop: 10/16/18 21:29 Last Admin: 10/16/18 21:35 Dose: Not Given Lorazepam (Ativan) 2 mg IVPUSH ONETIME ONE Stop: 10/16/18 23:03 Last Admin: 10/16/18 23:07 Dose: 2 mg Lorazepam (Ativan) 1 mg IVPUSH ONETIME STA Stop: 10/17/18 10:32 Last Admin: 10/17/18 10:39 Dose: 1 mg Lorazepam (Ativan) 1 mg IVPUSH ONETIME ONE Stop: 10/17/18 10:44 Last Admin: 10/17/18 11:00 Dose: 1 mg Lorazepam (Ativan) 2 mg IVPUSH ONETIME ONE Stop: 10/17/18 19:49 Last Admin: 10/17/18 19:53 Dose: 2 mg Lorazepam (Ativan) Confirm Administered Dose 2 mg .ROUTE .STK-MED ONE Stop: 10/17/18 19:52 Last Admin: 10/17/18 19:59 Dose: Not Given Phenytoin Sodium (Phenytoin) 1,700 mg IVPUSH ONETIME ONE Stop: 10/16/18 22:58 Last Admin: 10/16/18 23:13 Dose: 1,700 mg Simvastatin (Zocor) 20 mg PO ONETIME ONE Stop: 10/16/18 21:46 Last Admin: 10/16/18 23:35 Dose: Not Given
[2018-10-17] MEDS ORDERED: Simvastatin 20 MG Tab PO SCH (21:00)
[2018-10-17] MEDS: Citalopram 20 MG Tab PO SCH (22:08)
[2018-10-17] MEDS: lamoTRIgine 100 MG Tab PO SCH (22:08)
== END 2018-10-17 21:10 | DRG 101 ==
LOC: JD.ED 17:48 → JD.MS 20:09 → EDBD 20:09 → JD.ICU 22:25
PROVIDERS: ADMIT Family Medicine; ATTEND Family Medicine
DX: G40.901 Epilepsy, unspecified, not intractable, with status epilepticus (principal); H54.7 Unspecified visual loss; K59.09 Other constipation; F29 Unspecified psychosis not due to a substance or known physiological condition; G40.209 Localization-related (focal) (partial) symptomatic epilepsy and epileptic syndromes with complex partial seizures, not intractable, without status epilepticus; F41.9 Anxiety disorder, unspecified; Z79.899 Other long term (current) drug therapy; F71 Moderate intellectual disabilities; R32 Unspecified urinary incontinence
CPT/HCPCS: 36415; 70450; 80053; 83735; 84100; 85007; 85027; 96374; 96375; 99285; A9270; G0480; J2060 ×3; 51701; 71045; 71045-26; 83605; 85025; 87641; 96376; 99283; J1165; J1953; J3360; J7030; J7040